=== PATIENT | female | born 1965 | race Caucasian/White ===

== ENCOUNTER 2019-09-24 17:26 | Emergency (ER) | payer OTHER, SELFPAY ==
[2019-09-24 17:43] VITALS: BP 135/80; PULSE 103; RESP 16; TEMP 39.1; O2SAT 100
[2019-09-24 17:51] VITALS: TEMP 39.1
[2019-09-24] MEDS: IBUPROFEN 400 MG TABLET PO (17:51)
--- NOTE | 2019-09-24 17:55 | ED.URI ---
HPI - URI/Sore Throat General Chief Complaint: Upper Respiratory Infection Stated Complaint: Congestion History of Present Illness HPI Narrative: This is a 54-year-old female comes in complaining of malaise and fatigue slight sore throat with a headache. Patient states she has been coughing and just does not feel good. Related Data Home Medications Medication Instructions Recorded Confirmed lisinopril [Zestril] 20 mg PO DAILY 09/24/19 09/24/19 rosuvastatin [Crestor] 10 mg PO DAILY 09/24/19 09/24/19 triamterene-hydrochlorothiazid 1 cap PO DAILY 09/24/19 09/24/19 [Dyazide] Allergies Allergy/AdvReac Type Severity Reaction Status Date / Time adhesive tape Allergy Intermediate Rash Verified 09/24/19 17:55 Review of Systems Review of Systems: Narrative: CONSTITUTIONAL: Reports s fever, chills, or sweats. EYES: Denies visual changes, redness, or discharge. ENT: Reports rhinorrhea, congestion, sore throat, or otalgia. CARDIOVASCULAR:Denies chest pain, palpitations, or edema. RESPIRATORY: Reports cough or dyspnea. GASTROINTESTINAL: Denies abdominal pain, nausea, vomiting, or diarrhea. GENITOURINARY: Denies dysuria or hematuria. SKIN:[Denies rash or itching. MUSCULOSKELETAL:Denies back pain, joint pain, or myalgia. NEUROLOGIC: Denies headache, numbness, or weakness. PSYCHIATRIC:Denies anxiety or depression PMFSH Social History Social History Gender identity (if verbalized by the patient): Female Comments At time as signature, I have reviewed and agree with nursing past medical, social, surgical and family history. Please see nursing chart for further information. There is no relevant family history pertinent to the presenting complaint. Exam Narrative: Exam Narrative: GENERAL:Well-appearing, well-nourished, and in no acute distress. Fatigue HEAD:Normocephalic, atraumatic. EYES: PERRLA and EOMI. ENT: Nares clear, no rhinorrhea or epistaxis. Mucous membranes moist. Pharyngeal erythema, TM bulging bilaterally NECK: Supple. CHEST: Clear to auscultation. No respiratory distress. HEART: Regular rate and rhythm. No murmur heard. Normal peripheral pulses. ABDOMEN: Soft, nontender, nondistended, normal active bowel sounds. EXTREMITIES: Normal range of motion. No edema. SKIN: Warm, dry, no rash. NEURO: No focal deficits. Alert and oriented x3. Positive for influenza Course Vital Signs Vital signs: Vital Signs Temperature 102.3 F H 09/24/19 17:43 Pulse Rate 103 H 09/24/19 17:43 Respiratory Rate 16 09/24/19 17:43 Blood Pressure 135/80 09/24/19 17:43 Pulse Oximetry 100 09/24/19 17:43 Temperature 102.0 F H 09/24/19 19:43 Pulse Rate 103 H 09/24/19 17:43 Respiratory Rate 16 09/24/19 17:43 Blood Pressure 135/80 09/24/19 17:43 Pulse Oximetry 100 09/24/19 17:43 MDM - URI/Sore Throat Lab Data Labs: Influenza A Screen Negative Reference Range: Negative Influenza B Screen Negative Reference Range: Negative Discharge Plan Discharge Clinical Impression: Influenza-like illness, Upper respiratory infection Patient Disposition: Home, Self-Care Condition: Stable Instructions: Antibiotic Form, Influenza (ED), Upper Respiratory Infection (ED) Prescriptions: New oseltamivir [Tamiflu] 75 mg capsule 75 mg PO Q12H 5 Days Qty: 10 RF: 0 ondansetron 4 mg tablet,disintegrating 4 mg PO Q8H PRN (Reason: nausea and vomiting) Qty: 10 RF: 0 albuterol sulfate 90 mcg/actuation HFA aerosol inhaler 1 inhalation INHALATION QID PRN (Reason: shortness of breath or wheezing) Qty: 8.5 RF: 0 No Action lisinopril [Zestril] 20 mg Tablet 20 mg PO DAILY RF: 0 triamterene-hydrochlorothiazid [Dyazide] 37.5-25 mg Capsule 1 cap PO DAILY RF: 0 rosuvastatin [Crestor] 10 mg Tablet 10 mg PO DAILY RF: 0 Follow-up/Referrals: Kishor,ESTRELLA Champion [Primary Care Provider] - Stand Alone Forms: Work/School Release IP Ti
[2019-09-24 19:07] VITALS: TEMP 39.2
[2019-09-24] MEDS: ACETAMINOPHEN 325 MG TABLET 650 MG PO (19:07)
[2019-09-24 19:28] VITALS: TEMP 38.9
[2019-09-24 19:43] VITALS: TEMP 38.9
== END 2019-09-24 19:40 | disposition home or self-care (01) ==
PROVIDERS: Emergency Provider Nurse Practitioner Family; PCP Nurse Practitioner Adult Health
DX: J06.9 Acute upper respiratory infection, unspecified (principal); J02.9 Acute pharyngitis, unspecified; R53.83 Other fatigue; R51 Headache; R53.81 Other malaise
CPT/HCPCS: 87804; 99213; A9270; G0463